=== PATIENT | male | born 1945 | race Caucasian/White ===

== ENCOUNTER 2022-09-06 19:40 | Observation (INO) | payer MEDICARE, OTHER ==
[2022-09-06] VITALS (8 sets, daily range): BP systolic 113–163; BP diastolic 73–91
[~2022-09-06] VITALS: Ht 180.3 cm; Wt 93.4 kg
--- NOTE | 2022-09-06 19:48 | NUR ---
PT TO ROOM 6 FOR TRIAGE AT BEDSIDE. EKG COMPLETED.
[2022-09-06] MEDS ORDERED: TOPROL XL100 MG PO (20:15)
[2022-09-06] MEDS ORDERED: ASPIRINCHW 81MG PO (20:15)
[2022-09-06] MEDS ORDERED: FISH OIL1000 M1 PO (20:16)
[2022-09-06] MEDS ORDERED: GLIPIZIDE5 M2 PO (20:16)
--- NOTE | 2022-09-06 20:25 | NUR ---
IV ACCESS OBTAINED, LABS COLLECTED AT THIS TIME.
[2022-09-06 20:45] LABS: BASO% 0.3 % (0-3); EOS% 2.9 % (0-8); HEMOGLOBIN 14.2 g/dl (14.0-18.0); IMMATURE GRANULOCYTES 0.6 % (0.0-5.0); LYMPH% 36.1 % (15-41); MEAN CELL VOLUME 90.3 fL CALC (80.0-100.0); MEAN CORPUSCULAR HGB 29.8 pG CALC (26.0-32.0); MONO% 9.3 % (2-13); NEUT# 3.48 thou/uL (1.82-7.42); NEUT% 50.8 % (42-76); RED BLOOD COUNT 4.76 mill/uL (4.70-6.10); RED CELL DISTRI WIDTH 13.2 % (11.5-15.5)
[2022-09-06 21:00] LABS: ALBUMIN 4.2 g/dL (3.2-5.0); ALKALINE PHOSPHATASE 69 u/l (38-126); ANION GAP 12 (6-22 (CALC)); BILIRUBIN, TOTAL 0.4 mg/dL (0.2-1.3); BUN 32 mg/dL (8-23); BUN/CREATININE RATIO 19 (12-20 (CALC)); CARBON DIOXIDE 27 mmol/l (22-30); CHLORIDE 101 mmol/l (95-108); CREATININE 1.7 mg/dL (0.7-1.3); GFR FOR AFR.AMER. 48 ML/MIN (>=60 (CALC)); GFR OTHER RACES 39 ML/MIN (>=60 (CALC)); POTASSIUM 3.9 mmol/l (3.5-5.1); SODIUM 137 mmol/l (137-146); TOTAL PROTEIN 7.3 g/dL (6.3-8.2)
[2022-09-06 21:05] LABS: SGOT/AST 42 u/l (19-48)
[2022-09-06 21:49] LABS: URINE BILIRUBIN - DIPSTICK NEGATIVE (NEGATIVE); URINE BLOOD DIPSTICK NEGATIVE (NEGATIVE); URINE COLOR YELLOW; URINE GLUCOSE - DIPSTICK NEGATIVE (NEGATIVE); URINE KETONE NEGATIVE (NEGATIVE); URINE LEUK ESTERASE NEGATIVE (NEGATIVE); URINE PROTEIN - DIPSTICK NEGATIVE (NEG-TRACE); URINE SPECIFIC GRAVITY 1.015; URINE UROBILINOGEN - DIPSTICK 0.2 E.U./dL (0.2)
[2022-09-06 21:57] LABS: URINE NITRITE - DIPSTICK NEGATIVE (Negative)
[2022-09-07] VITALS (9 sets, daily range): BP systolic 101–167; BP diastolic 58–108
--- NOTE | 2022-09-07 04:05 | NUR ---
BP ELEVATED. NOTIFIED. PT WILL BE GIVEN LABETELOL 10 MG IVP FOR BP OF 162/103
[2022-09-07 06:05] LABS: BASO% 0.4 % (0-3); EOS% 1.8 % (0-8); HEMATOCRIT 44.9 % (39.0-50.0); HEMOGLOBIN 14.8 g/dl (14.0-18.0); IMMATURE GRANULOCYTES 0.4 % (0.0-5.0); LYMPH% 26.2 % (15-41); MEAN CELL VOLUME 90.7 fL CALC (80.0-100.0); MEAN CORPUSCULAR HGB 29.9 pG CALC (26.0-32.0); MONO% 7.8 % (2-13); NEUT# 5.21 thou/uL (1.82-7.42); NEUT% 63.4 % (42-76); RED BLOOD COUNT 4.95 mill/uL (4.70-6.10); RED CELL DISTRI WIDTH 13.1 % (11.5-15.5)
[2022-09-07 06:16] LABS: ALBUMIN 4.5 g/dL (3.2-5.0); CREATININE 1.5 mg/dL (0.7-1.3); POTASSIUM 4.1 mmol/l (3.5-5.1); TOTAL PROTEIN 7.5 g/dL (6.3-8.2)
[2022-09-07 06:21] LABS: BILIRUBIN, TOTAL 0.7 mg/dL (0.2-1.3)
--- NOTE | 2022-09-07 06:49 | NUR ---
REPORT RECEIVED FROM ER NURSE. PATIENT ARRIVED TO [place] [id number] AT 0600 VIA WHEELCHAIR. PATIENT ALERT AND AWAKE. ANSWERS QUESTIONS APPROPRIATELY. DENIES PAIN OR DISCOMFORT AT THIS TIME. ABLE TO AMBULATE INDEPENDENTLY. RESPIRATIONS EVEN AND UNLABORED ON ROOM AIR. CALL LIGHT WITHIN REACH.
--- NOTE | 2022-09-07 07:32 | NUR ---
PT RESTING IN LOW FOWLERS POSITION A/OX3 HARD OF HEARING.HEART RHYTHM ON TELE IV SITE NOTED. RESPIRATIONS ON ROOM AIR IV SITE NOTED. PT DENIES ADDITIONAL NEEDS AT THE TIME ALL SAFETY PRECAUTIONS IN PLACE CALL LIGHT NREACH.
[2022-09-07] MEDS ORDERED: PROTONIX20 M1 PO (11:11)
--- NOTE | 2022-09-07 11:58 | NUR ---
PT TO BE DC TODAY.
--- NOTE | 2022-09-07 12:50 | NUR ---
Discharge instructions given. Patient verbalizes understanding of same. Discharged in stable condition via Wheelchair to Home with staff. All belongings sent with pt. IV REMOVED TELE REMOVED.
== END 2022-09-07 12:45 | disposition home or self-care (01) ==
LOC: ED 19:40 → ED-I 21:14 → ED 21:55 → MS2 21:56
PROVIDERS: Emergency Medicine; ADMIT Internal Medicine; ATTEND Internal Medicine
DX: R07.9 Chest pain, unspecified (principal); I10 Essential (primary) hypertension; E11.9 Type 2 diabetes mellitus without complications; I25.10 Atherosclerotic heart disease of native coronary artery without angina pectoris; Z95.5 Presence of coronary angioplasty implant and graft; Z86.79 Personal history of other diseases of the circulatory system; Z85.89 Personal history of malignant neoplasm of other organs and systems